=== PATIENT | male | born 1950 | race Caucasian/White ===

== ENCOUNTER 2023-02-14 04:26 | Day surgery (SDC) | payer OTHER ==
[2023-02-12 16:37] VITALS: BMI 28.8
[2023-02-14 07:31] VITALS: TEMP 97.6
[2023-02-14 14:43] VITALS: BP 101/65; PULSE 99; RESP 17
== END 2023-02-14 08:57 | disposition home or self-care (01) ==
LOC: JASU-ENDO 04:26
PROVIDERS: ATTEND Internal Medicine Gastroenterology
PROC: 0DJD8ZZ Inspection of Lower Intestinal Tract, Via Natural or Artificial Opening Endoscopic (ICD-10-PCS; principal; 2023-02-14 08:00)
DX: Z12.11 Encounter for screening for malignant neoplasm of colon (principal); K64.8 Other hemorrhoids; K57.30 Diverticulosis of large intestine without perforation or abscess without bleeding; Z86.010 Personal history of colon polyps